=== PATIENT | male | born 2000 | race Two or more races ===

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

== ENCOUNTER 2019-11-29 03:51 | Emergency (ER) | payer SELFPAY ==
[~2019-11-29] VITALS: Ht 162.6 cm; Wt 93.0 kg
[~2019-11-29 03:51] MED LIST changes: +AZIT250T6 PO; +BECL10.62 IH; +CETI10TA74 PO; +PRED20TA PO; +VENTOLIN HFA18 GM INH
--- NOTE | 2019-11-29 04:01 | PHYS DOC ---
Past Medical History Past Medical History: Asthma Past Surgical History: No Surgical History Smoking Status: Never Smoker Alcohol Use: None Drug Use: None General Adult EDM: Chief Complaint: ASTHMA HPI: HPI: Patient is a 18 year old male with history of asthma present to ER with trouble breathing and wheezing since last night. Patient had few inhaler but did not help. Patient denies any cough, no fever. Patient denies any chest pain, no abdominal pain, no nausea vomiting. Patient denies been exposed to anybody who tested positive COVID-19. Review of Systems: Review of Systems: Constitutional: Denies fever or chills. [] Eyes: Denies change in visual acuity. [] HENT: Denies nasal congestion or sore throat. [] Respiratory: Denies cough, positive trouble breathing, wheezing. Cardiovascular: Denies chest pain or edema. [] GI: Denies abdominal pain, nausea, vomiting, bloody stools or diarrhea. [] : Denies dysuria. [] Musculoskeletal: Denies back pain or joint pain. [] Integument: Denies rash. [] Neurologic: Denies headache, focal weakness or sensory changes. [] Endocrine: Denies polyuria or polydipsia. [] Lymphatic: Denies swollen glands. [] Psychiatric: Denies depression or anxiety. [] Heart Score: Risk Factors: Risk Factors: DM, Current or recent (<one month) smoker, HTN, HLP, family history of CAD, obesity. Risk Scores: Score 0 - 3: 2.5% MACE over next 6 weeks - Discharge Home Score 4 - 6: 20.3% MACE over next 6 weeks - Admit for Clinical Observation Score 7 - 10: 72.7% MACE over next 6 weeks - Early Invasive Strategies Current Medications: Current Medications Medications (Trade) Dose Ordered Sig/Tereza Start Time Stop Time Status Last Admin Dose Admin Albuterol/ Ipratropium (Duoneb) 3 ml 1X ONCE 11/29/19 04:30 11/29/19 04:31 Allergies: Allergies: Allergies Coded Allergies Type Severity Reaction Last Updated Verified No Known Drug Allergies 04/13/16 No Physical Exam: PE: Constitutional: Well developed, well nourished, no acute distress, non-toxic appearance. [] HENT: Normocephalic, atraumatic, bilateral external ears normal, oropharynx moist, no oral exudates, nose normal. [] Eyes: PERRLA, EOMI, conjunctiva normal, no discharge. [] Neck: Normal range of motion, no tenderness, supple, no stridor. [] Cardiovascular:Heart rate regular rhythm, no murmur [] Lungs & Thorax: Bilateral breath sounds with expiratory and inspiratory wheezing. No respiratory distress. Abdomen: Bowel sounds normal, soft, no tenderness, no masses, no pulsatile masses. [] Skin: Warm, dry, no erythema, no rash. [] Back: No tenderness, no CVA tenderness. [] Extremities: No tenderness, no cyanosis, no clubbing, ROM intact, no edema. [] Neurologic: Alert and oriented X 3, normal motor function, normal sensory function, no focal deficits noted. [] Psychologic: Affect normal, judgement normal, mood normal. [] EKG: EKG: [] Radiology/Procedures: Radiology/Procedures: [][facility] [address] [place], [place] [id number] IMAGING REPORT Signed PATIENT: DARWIN STEWARTACCOUNT: [id number] : 2000 LOCATION: ER AGE: 18 SEX: M EXAM STATUS: REG ER ORD. PHYSICIAN: AMAYA RASHID DO REASON: SOA PROCEDURE: CHEST AP ONLY EXAM: CHEST AP ONLY 11/29/2019 4:02 AM CLINICAL INDICATION: Shortness of breath COMPARISON: Chest radiograph 11/26/2017 TECHNIQUE: AP upright view of the chest FINDINGS: The heart and mediastinum are normal. Lungs are well-expanded and clear. No consolidation, pleural effusion, or pneumothorax. Pulmonary vascularity is normal. The thoracic skeleton is intact. IMPRESSION: Normal chest radiograph. Electronically signed by: Samira Emery MD (11/29/2019 4:37 AM) [id number] DICTATED and SIGNED BY: SAMIRA EMERY MD DATE: 11/29/19 0437 Course & Med Decision Making: Course & Med Decision Making Pertinent Labs and Imaging studies reviewed. (See chart for details) Patient is a 18-year-old man who presented with asthmatic attack. Patient was given medication in the ER, he feels much better now. Patient will be discharged home. Patient has an inhaler at home. Dragon Disclaimer: DragEasyLink Disclaimer: This electronic medical record was generated, in whole or in part, using a voice recognition dictation system. Departure Departure Impression: Primary Impression: Asthma with acute exacerbation Disposition: 01 DC HOME SELF CARE/HOMELESS Condition: IMPROVED Referrals: NO PCP (PCP) please follow up with your doctor this week Patient Instructions: Asthma Attacks, Prevention, Asthma, Adult Additional Instructions: Thank you for visiting our Emergency Department. We appreciate you trusting us with your care. If any additional problems come up don't hesitate to return to visit us. Please follow up with your primary care provider so they can plan additional care if needed and know about the problem that you had. If symptoms worsen come back to the Emergency Department. Any concerning symptoms that start such as chest pain, shortness of air, weakness or numbness on one side of the body, running high fevers or any other concerning symptoms return to the ER. Scripts Prednisone (PREDNISONE) 20 Mg Tablet 2 TAB PO DAILY for 7 Days, #14 TAB Prov: AMAYA RASHID DO 11/29/19 AMAYA RASHID DO Nov 29, 2019 04:01
[2019-11-29] MEDS ORDERED: IPRATRPIUM/ALBUTEROL 0.5/2.5MG 3 ML NEBU. NEB ONE (04:30)
[2019-11-29] MEDS ORDERED: predniSONE 20 MG TABLET PO ONE (04:30)
[2019-11-29] MEDS ORDERED: EPINEPHrine 1 MG/ML VIAL IM ONE (04:30)
--- NOTE | 2019-11-29 04:40 | RAD ---
EXAM: CHEST AP ONLY 11/29/2019 4:02 AM CLINICAL INDICATION: Shortness of breath COMPARISON: Chest radiograph 11/26/2017 TECHNIQUE: AP upright view of the chest FINDINGS: The heart and mediastinum are normal. Lungs are well-expanded and clear. No consolidation, pleural effusion, or pneumothorax. Pulmonary vascularity is normal. The thoracic skeleton is intact. IMPRESSION: Normal chest radiograph. Electronically signed by: Samira Emery MD (11/29/2019 4:37 AM) [id number]
[2019-11-29 05:00] VITALS: BP 133/74
[2019-11-29] MEDS ORDERED: PRED20TA PO (05:25)
== END 2019-11-29 05:35 | disposition home or self-care (01) ==
LOC: ER 03:51
DX: J45.901 Unspecified asthma with (acute) exacerbation (principal)
CPT/HCPCS: 71045; 94640; 96372; 99283; J0171; J7512

== ENCOUNTER 2020-09-01 09:29 | Emergency (ER) | payer SELFPAY ==
[~2020-09-01] VITALS: Ht 167.6 cm; Wt 95.4 kg
[2020-09-01] MEDS ORDERED: IPRATRPIUM/ALBUTEROL 0.5/2.5MG 3 ML NEBU. NEB ONE (09:45)
[2020-09-01] MEDS ORDERED: DEXAMETHASONE 4 MG TABLET PO ONE (09:45)
--- NOTE | 2020-09-01 10:05 | PHYS DOC ---
Past Medical History Past Medical History: Asthma Past Surgical History: No Surgical History Smoking Status: Never Smoker Alcohol Use: None Drug Use: None General Adult EDM: Chief Complaint: ASTHMA HPI: HPI: Patient is a 19 year old male with a history of asthma who presents with SOB. The patient ran out of his albuterol inhaler two days ago and has been experiencing SOB since. The patient reports previous asthma exacerbations when he stops using his inhaler. He states that he becomes SOB if he does not use his inhaler daily. The patient denies chest pain, diaphoresis, or abdominal pain at this time. The patient denies any recent illness or recent sick contacts. The patient denies nausea, vomiting, or diarrhea. Denies known sick contacts. Denies known exposure to COVID-19. Review of Systems: Review of Systems: Constitutional: Denies fever or chills Eyes: Denies redness or eye pain HENT: Denies nasal congestion or sore throat Respiratory: Reports SOB and wheezing; Denies cough Cardiovascular: Denies chest pain or palpitations GI: Denies abdominal pain, nausea, or vomiting : Denies dysuria or hematuria Musculoskeletal: Denies back pain or joint pain Integument: Denies rash or skin lesions Neurologic: Denies headache, focal weakness or sensory changes Complete systems were reviewed and found to be within normal limits, except as documented in this note. Heart Score: C/O Chest Pain: N/A Current Medications: Current Medications Medications (Trade) Dose Ordered Sig/Tereza Start Time Stop Time Status Last Admin Dose Admin Albuterol/ Ipratropium (Duoneb) 3 ml 1X ONCE 09/01/20 09:45 09/01/20 09:51 DC Dexamethasone (Decadron) 10 mg 1X ONCE 09/01/20 09:45 09/01/20 09:51 DC Allergies: Allergies: Allergies Coded Allergies Type Severity Reaction Last Updated Verified No Known Drug Allergies 02/11/20 No Physical Exam: PE: Constitutional: Well developed, obese, in mild distress, non-toxic appearance HENT: Normocephalic, atraumatic Eyes: Conjunctiva normal, no discharge Neck: Normal range of motion, no tenderness, supple Lungs & Thorax: Mild respiratory distress, wheezes heard bilaterally, normal chest rise and fall Abdomen: Soft, no tenderness Skin: Warm, dry, no erythema, no rash Extremities: No tenderness, ROM intact, no edema Neurologic: Alert and oriented X 3, no focal deficits noted Psychologic: Affect normal, judgment normal EKG: EKG: [] Radiology/Procedures: Radiology/Procedures: PROCEDURE: CHEST AP ONLY XR CHEST 1V History: Short of air, history of asthma Comparison: 02/11/2020, 11/29/2019 Technique: AP radiograph of the chest. Findings: The lungs are adequately and symmetrically inflated. No airspace consolidation, pleural effusion or pneumothorax. The cardiomediastinal silhouette and pulmonary vasculature are within normal limits. No acute osseous abnormality. Soft tissues are unremarkable. Impression: 1. No acute cardiopulmonary process. Electronically signed by: Pb Ellis MD (09/01/2020 10:36 AM) [facility] Course & Med Decision Making: Course & Med Decision Making Pertinent Imaging studies reviewed. (See chart for details) Patient is a 19 year old male who presented with shortness of breath after running out of his inhaler two days ago. The patient has a history of asthma. Breathing treatment was administered and the patient's SOB improved significantly. CXR was obtained and showed no acute findings. Dexamethasone was also given. Patient stable for discharge with outpatient follow-up with PCP. Discussed findings and plan with patient and family, who acknowledge understanding and agreement. Mona Disclaimer: Mona Disclaimer: This electronic medical record was generated, in whole or in part, using a voice recognition dictation system. Departure Departure Impression: Primary Impression: Asthma with acute exacerbation Qualified Codes: J45.21 - Mild intermittent asthma with (acute) exacerbation Disposition: 01 HOME / SELF CARE / HOMELESS Condition: STABLE Referrals: NO PCP (PCP) Patient Instructions: Asthma, Adult, [id number] Scripts Albuterol Sulfate (PROAIR HFA INHALER) 8.5 Gm Hfa.aer.ad 2 PUFF IH PRN Q4-6HRS PRN for wheezing, #1 INHALER 0 Refills Prov: ALLEN EMMANUEL DO 09/01/20 Prednisone (PREDNISONE) 20 Mg Tablet 2 TAB PO DAILY for 4 Days, #8 TAB Start this prescription tomorrow, Thursday09/02/20 Prov: ALLEN EMMANUEL DO 09/01/20 ALLEN EMMANUEL DO Sep 01, 2020 10:05
--- NOTE | 2020-09-01 10:38 | RAD ---
XR CHEST 1V History: Short of air, history of asthma Comparison: 02/11/2020, 11/29/2019 Technique: AP radiograph of the chest. Findings: The lungs are adequately and symmetrically inflated. No airspace consolidation, pleural effusion or p neumothorax. The cardiomediastinal silhouette and pulmonary vasculature are within normal limits. No acute osseous abnormality. Soft tissues are unremarkable. Impression: 1. No acute cardiopulmonary process. Electronically signed by: Pb Ellis MD (09/01/2020 10:36 AM) [facility]
[2020-09-01] MEDS ORDERED: ALBU2.5V8 IH (10:56)
[2020-09-01] MEDS ORDERED: PRED20TA PO (10:56)
[2020-09-01 11:02] VITALS: BP 145/80
== END 2020-09-01 11:05 | disposition home or self-care (01) ==
LOC: ER 09:29
DX: J45.21 Mild intermittent asthma with (acute) exacerbation (principal)
CPT/HCPCS: 71045; 94640; 99283

== ENCOUNTER 2020-12-20 04:09 | Emergency (ER) | payer SELFPAY ==
[~2020-12-20] VITALS: Ht 165.1 cm; Wt 100.0 kg
[~2020-12-20 04:09] MED LIST changes: +ALBU2.5V8 IH
[2020-12-20] MEDS ORDERED: IPRATRPIUM/ALBUTEROL 0.5/2.5MG 3 ML NEBU. ONE (04:21)
--- NOTE | 2020-12-20 04:22 | PHYS DOC ---
Past Medical History Past Medical History: Asthma Past Surgical History: Other Additional Past Surgical Histo: LT FOOT Smoking Status: Never Smoker Alcohol Use: None Drug Use: None General Adult EDM: Chief Complaint: ASTHMA HPI: HPI: 20-year-old male past medical history of asthma, presents the ED with complaints of shortness of breath that started yesterday, reports he ran out of his albuterol inhaler and this feels like his asthma. Has not been able to sleep due to difficulty breathing. Last asthma exacerbation was approximately 1 year ago which required hospitalization. No prior history of intubations. Has not been vaccinated for Covid due to being scared of the vaccine. Is not a tobacco smoker. Review of Systems: Review of Systems: Constitutional: Denies fever or chills. [] Eyes: Denies change in visual acuity. [] HENT: Denies nasal congestion or sore throat. [] Respiratory: Denies cough or shortness of breath. [] Cardiovascular: Denies chest pain or edema. [] GI: Denies abdominal pain, nausea, vomiting, bloody stools or diarrhea. [] : Denies dysuria. [] Musculoskeletal: Denies back pain or joint pain. [] Integument: Denies rash. [] Neurologic: Denies headache, focal weakness or sensory changes. [] Endocrine: Denies polyuria or polydipsia. [] Lymphatic: Denies swollen glands. [] Psychiatric: Denies depression or anxiety. [] Heart Score: C/O Chest Pain: No Risk Factors: Risk Factors: DM, Current or recent (<one month) smoker, HTN, HLP, family history of CAD, obesity. Risk Scores: Score 0 - 3: 2.5% MACE over next 6 weeks - Discharge Home Score 4 - 6: 20.3% MACE over next 6 weeks - Admit for Clinical Observation Score 7 - 10: 72.7% MACE over next 6 weeks - Early Invasive Strategies Current Medications: Current Medications Medications (Trade) Dose Ordered Sig/Tereza Start Time Stop Time Status Last Admin Dose Admin Albuterol/ Ipratropium (Duoneb) 9 ml 1X ONCE 12/20/20 04:15 12/20/20 04:16 UNV Dexamethasone (Decadron) 10 mg 1X ONCE 12/20/20 04:30 12/20/20 04:31 Allergies: Allergies: Allergies Coded Allergies Type Severity Reaction Last Updated Verified No Known Drug Allergies 02/11/20 No Physical Exam: PE: Constitutional: increased work of breathing, non-toxic appearance. HENT: Normocephalic, atraumatic, Eyes: EOMI, conjunctiva normal, no discharge. Neck: Normal range of motion, supple, Cardiovascular: S1/2 present, regular rhythm Lungs & Thorax: Speaking in full sentences, tachypneic with subcostal retractions and audible wheezing, Abdomen: soft, no tenderness, obese Skin: Warm, diaphoretic Extremities: No tenderness, no cyanosis, no lower extremity edema Neurologic: Alert and oriented X 3, normal motor function, normal sensory function, no focal deficits noted. [] Psychologic: Affect normal, judgement normal, mood normal. [] EKG: EKG: sinus rhythm 95 bpm, LAD, normal intervals, no ST elevations or depressions, Radiology/Procedures: Radiology/Procedures: IMAGING REPORT Signed PATIENT: DARWIN STEWARTACCOUNT: [id number] : 2000 LOCATION: ER AGE: 20 SEX: M EXAM STATUS: PRE ER ORD. PHYSICIAN: JAYLA SR DO REASON: soa PROCEDURE: CHEST AP ONLY XR CHEST 1V 12/20/2020 4:23 AM INDICATION: Shortness of air COMPARISON: 09/01/2020 TECHNIQUE: Portable frontal view of the chest is provided. FINDINGS: The cardiomediastinal silhouette is within normal limits. Lungs are clear. There are no significant pleural effusions. There is no pulmonary vascular congestion. No pneumothorax. No suspicious osseous abnormality. IMPRESSION: There is no acute cardiopulmonary process. Electronically signed by: Saranya Barrera MD (12/20/2020 4:41 AM) [facility] DICTATED and SIGNED BY: SARANYA BARRERA MD DATE: 12/20/20 [id number] 0 Course & Med Decision Making: Course & Med Decision Making Pertinent Labs and Imaging studies reviewed. (See chart for details) On reevaluation, pt calm, tachypnea resolved. Pt with bilateral breath sounds, mild wheezing. Patient speaking in full sentences and not requiring any supplemental oxygen. Tachycardia resolved-patient hemodynamically stable. Patient states significant relief of symptoms and feels well to return home. Will prescribe steroids, Flovent, and albuterol inhaler. Rapid Covid and flu negative. Will discharge home with strict ED return precautions were given for difficulties breathing, fever or chest pain. Encouraged urgent outpatient follow-up with PMD and pulmonology as needed for definitive management of asthma. Life-threatening processes were considered but are low suspicion at this time, given history, physical exam and ED workup. Pt was educated on all prescription medications and adverse effects. All patient's questions were answered and pt was stable at time of discharge. Life/limb-threatening differential includes but is not limited to, ACS, dysrhythmia, pneumothorax or hemothorax, pulmonary embolus, pneumonia, bronchoconstriction, pulmonary edema, angioedema, epiglottitis, tracheitis, Lawrence's angina, RPA/CONSULTING PSYCHOLOGIST, anaphylaxis, angioedema, cardiac tamponade or murmurs, pericarditis, myocarditis, poisoning or toxicity, sepsis or autoimmune/neurologic disease. I have spoken with the patient and/or caregivers. I explained the patient's condition, diagnoses and treatment plan based on the information available to me at this time. I have answered the patient and/or caregiver's questions and addressed any concerns. The patient and/or caregivers have a good understanding of patient's diagnosis, condition and treatment plan as can be expected at this point. Vital signs have been stable. Patient's condition is stable and appropriate for discharge from the emergency department. Patient will pursue further outpatient evaluation with primary care physician or other designated or consulting physician as outlined in the discharge instructions. The patient and/or caregivers are agreeable to this plan of care and follow-up instructions have been explained in detail. The patient and/or caregivers have received these instructions in written form and have expressed an understanding of the discharge instructions. The patient and/or caregivers are aware that any significant change of condition or worsening of symptoms should prompt immediate return to this or the closest emergency department or call to 911. Mona Disclaimer: Mona Disclaimer: This electronic medical record was generated, in whole or in part, using a voice recognition dictation system. Departure Departure Impression: Primary Impression: Asthma with acute exacerbation Additional Impression: Person under investigation for COVID-19 Disposition: HOME / SELF CARE / HOMELESS Condition: STABLE Referrals: NO PCP (PCP) Follow-up with your primary care physician in 24 to 48 hours OR FOLLOW UP WITH FAMILY MEDICINE: [address], [address] [place] [address] Patient Instructions: Asthma Prevention-Brief, Asthma, Adult Additional Instructions: FOLLOW UP WITH PULMONOLOGY: FOR DEFINITIVE MANAGEMENT of asthma [facility] [address] [place] [address] Return to ED immediately if your oxygen level drops below 90% (purchase a pulse oximetry at a medical supply store), difficulties breathing including rapid breathing or increased work of breathing (skin sucking under ribs), chest pain or stroke-like symptoms (facial droop, speech changes, arm/leg weakness). You have been tested for or diagnosed with COVID-19. It is an infection caused by a new type of coronavirus. COVID-19 will cause cold-like or mild flu symptoms in most. It can cause more severe symptoms like problems breathing in some. There is no treatment for COVID-19. The body will clear the infection over time. Self-care will help to ease discomfort. Steps to Take: Self-Care Rest as needed. Healthy habits may help you feel better. Steps include: Choose healthy foods including fruits and vegetables. Drink water throughout the day. Get plenty of sleep each night. If you smoke, try to quit. It may ease breathing. Avoid alcohol. Keep Others Healthy The virus can spread to others. Droplets are released every time you sneeze or cough. The droplets can get into the mouth, nose, or eyes of people near you and lead to infection. To lower the chances of spreading COVID-19 to others: Stay at home until your doctor has said it is safe to leave. If you tested positive this will mean staying isolated until both of the following are true: At least 7 days have passed since the start of illness. You are free of fever for at least 72 hours without the use of medicine. During this time: - Avoid public areas, events, or transportation. Do not return to work or school until your doctor has said it is safe to do so. - Call ahead if you need to go to a medical center. Let them know you may have COVID-19. It will help them guide you where to go. They may also ask you to wear a facemask when you come to the office. - If you call for emergency medical services, let them know you may have COVID- 19. While at home: - Try to avoid close contact with others. Stay about 6 feet away. - If possible, spend most of your time in a separate room from others. - Use a face mask if you will be in close contact with others such as sharing a room or vehicle. - Have someone wipe down common surfaces in the home. Use household sterilization tech every day on areas like doorknobs, counters, or sinks. - Cough or sneeze into a tissue. Throw the tissue away right after use. If a tissue is not available, cough or sneeze into your elbow. - Wash your hands often. Wash them after sneezing or coughing. Use soap and water and wash for at least 20 seconds. Alcohol based hand floor cleaner can be used if soap and water is not available. - Do not prepare food for others. Avoid sharing personal items like forks, spoons, or toothbrushes. - Avoid close contact with pets while you are sick. There is no evidence of the virus passing to pets. This is a safety step until more is known about this virus. Isolation can be frustrating. Social interaction can help. Keep in touch with friends and family through phone and tech options. You can still interact with others in your home, just keep a safe distance of about 6 feet. Follow-up: Your doctors office will check in with you to see if there are any changes in your health. You may be asked to keep track of symptoms to share with them. They will also let you know when you are clear to be in public again. Problems to Look Out For: Contact your doctor if your recovery is not going as you expect. Get emergency care if you have problems such as: - Trouble breathing - Nonstop chest pain or pressure - Changes in awareness, confusion, or problems waking - Lips or face have bluish color - Worsening of symptoms If you think you have an emergency, call for emergency medical services right away. As taken from [email or web address] Fluticasone Propionate (FLOVENT 44MCG HFA) 10.6 Gm Aer.w.adap 2 PUFF IH BID, #1 INHALER 0 Refills Prov: JAYLA SR DO 12/20/20 Albuterol Sulfate (VENTOLIN HFA INHALER) 18 Gm Hfa.aer.ad 2 PUFF INH QID for FOR ASTHMA, #1 INHALER 0 Refills Prov: JYALA SR DO 12/20/20 Prednisone (PREDNISONE) 20 Mg Tablet 2 TAB PO DAILY for 4 Days, #8 TAB Prov: JAYLA SR DO 12/20/20 JAYLA SR DO Dec 20, 2020 04:22
[2020-12-20] MEDS ORDERED: DEXAMETHASONE 4 MG TABLET PO ONE (04:30)
[2020-12-20] MEDS ORDERED: IPRATRPIUM/ALBUTEROL 0.5/2.5MG 3 ML NEBU. NEB ONE (04:30)
[2020-12-20 04:42] LABS: BASO % 0 % (0-3); EOS # 1.3 x10^3/uL (0.0-0.7); EOS % 9 % (0-3); HEMATOCRIT 52.3 % (39.0-53.0); HEMOGLOBIN 17.8 g/dL (13.0-17.5); LYMPH # 3.4 x10^3/uL (1.0-4.8); LYMPH % 24 % (24-48); MEAN CORPUSCULAR HEMOGLOBIN 30 pg (25-35); MEAN CORPUSCULAR HGB CONC 34 g/dL (31-37); MEAN CORPUSCULAR VOLUME 87 fL (79-100); MONO # 1.1 x10^3/uL (0.0-1.1); MONO % 8 % (0-9); NEUT # 8.4 x10^3/uL (1.8-7.7); NEUT % 59 % (31-73); PLATELET COUNT 225 x10^3/uL (140-400); RED CELL DISTRIBUTION WIDTH 13.3 % (11.5-14.5); WHITE BLOOD COUNT 14.1 x10^3/uL (4.0-11.0)
--- NOTE | 2020-12-20 04:44 | RAD ---
XR CHEST 1V 12/20/2020 4:23 AM INDICATION: Shortness of air COMPARISON: 09/01/2020 TECHNIQUE: Portable frontal view of the chest is provided. FINDINGS: The cardiomediastinal silhouette is within normal limits. Lungs are clear. There are no significant pleural effusions. There is no pulmonary vascular congestion. No pneumothora x. No suspicious osseous abnormality. IMPRESSION: There is no acute cardiopulmonary process. Electronically signed by: Sarahi Barrera MD (12/20/2020 4:41 AM) [facility]
--- NOTE | 2020-12-20 04:47 | EKG ---
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
[2020-12-20 04:57] LABS: CALCIUM 9.3 mg/dL (8.5-10.1); CREATININE 1.1 mg/dL (0.7-1.3); GFR 84.5; POTASSIUM 3.6 mmol/L (3.5-5.1)
[2020-12-20] MEDS ORDERED: IV NORMAL SALINE 1000ML BAG 1,000 ML IV ONE (05:00)
[2020-12-20] MEDS ORDERED: MAGNESIUM SULFATE 2GM 50 ML IV ONE (05:00)
[2020-12-20 05:02] LABS: INFLUENZA A PATIENT NEGATIVE (NEGATIVE); INFLUENZA B PATIENT NEGATIVE (NEGATIVE)
[2020-12-20 05:05] LABS: ALBUMIN 4.5 g/dL (3.4-5.0); ALBUMIN/GLOBULIN RATIO 1.2 (1.0-1.7); MAGNESIUM 1.9 mg/dL (1.8-2.4); TOTAL BILIRUBIN 1.5 mg/dL (0.2-1.0); TOTAL PROTEIN 8.4 g/dL (6.4-8.2)
[2020-12-20 05:13] VITALS: BP 125/57
[2020-12-20 05:21] LABS: % EOS 8 % (0-5); % LYMPHS 20 % (24-48); % MONOS 8 % (0-10); % SEGS 64 % (35-66); PLT ESTIMATE ADEQUATE (ADEQUATE)
[2020-12-20] MEDS ORDERED: VENTOLIN HFA18 GM INH (05:47)
[2020-12-20] MEDS ORDERED: PRED20TA PO (05:47)
[2020-12-20] MEDS ORDERED: FLUT10.6 IH (05:47)
--- NOTE | 2020-12-20 17:10 | NUR ---
IP: Attempted to contact pt concerning covid results. No answer, left a voicemail to return the call.
== END 2020-12-20 06:02 | disposition home or self-care (01) ==
LOC: ER 04:09
DX: J45.901 Unspecified asthma with (acute) exacerbation (principal); Z20.822 Contact with and (suspected) exposure to COVID-19
CPT/HCPCS: 36415; 71045; 80053; 83735; 84484; 85007; 85025; 87426; 87804; 93005; 94640; 96365; 99285; J3475; J7030; U0003; U0005

== ENCOUNTER 2021-01-27 13:44 | Emergency (ER) | payer SELFPAY ==
[~2021-01-27] VITALS: Ht 167.6 cm; Wt 93.0 kg
[~2021-01-27 13:44] MED LIST changes: +FLUT10.6 IH
[2021-01-27] MEDS ORDERED: ALBUTEROL SULFATE 2.5 MG/3 ML NEBU. NEB ONE ×2 (14:15→15:00)
[2021-01-27] MEDS ORDERED: predniSONE 20 MG TABLET PO ONE (14:15)
--- NOTE | 2021-01-27 15:15 | PHYS DOC ---
Past Medical History Past Medical History: Asthma Past Surgical History: Other Additional Past Surgical Histo: LT FOOT Smoking Status: Never Smoker Alcohol Use: None Drug Use: None General Adult EDM: Chief Complaint: ASTHMA HPI: HPI: Patient is a 20-year-old male presents emergency department complaining of asthma attack started yesterday. Patient reports he is out of his albuterol inhaler. Reports this is a normal presentation for his asthma attacks, he would otherwise have used his rescue inhaler and been fine but was unable to because he does not have the medication currently to use. Patient reports he has not been hospitalized in the past for his asthma. Does not see primary care for asthma currently. Denies allergies to medications, reports when he presents like this he usually receives 1-3 nebulized breathing treatments, started on oral prednisone and is prescribed oral prednisone for treatment at home. Patient denies recent fever or chills, denies chest pains, chest congestion or nasal congestion. Patient denies other physical complaints or physical concerns. Review of Systems: Review of Systems: 14 body systems of review of systems have been reviewed. See HPI for pertinent positives and negative responses, otherwise all other systems are negative, nonpertinent or noncontributory. Constitutional: Negative except as outlined in HPI above. Skin: Negative except as outlined in HPI above. Eyes: Negative except as outlined in HPI above. HENT: Negative except as outlined in HPI above. Respiratory: Negative except as outlined in HPI above. Cardiovascular: Negative except as outlined in HPI above. GI: Negative except as outlined in HPI above. : Negative except as outlined in HPI above. Musculoskeletal: Negative except as outlined in HPI above. Integument: Negative except as outlined in HPI above. Neurologic: Negative except as outlined in HPI above. Endocrine: Negative except as outlined in HPI above. Lymphatic: Negative except as outlined in HPI above. Psychiatric: Negative except as outlined in HPI above. Heart Score: C/O Chest Pain: No Risk Factors: Risk Factors: DM, Current or recent (<one month) smoker, HTN, HLP, family history of CAD, obesity. Risk Scores: Score 0 - 3: 2.5% MACE over next 6 weeks - Discharge Home Score 4 - 6: 20.3% MACE over next 6 weeks - Admit for Clinical Observation Score 7 - 10: 72.7% MACE over next 6 weeks - Early Invasive Strategies Current Medications: Current Medications Medications (Trade) Dose Ordered Sig/Tereza Start Time Stop Time Status Last Admin Dose Admin Albuterol Sulfate (Ventolin Neb Soln) 2.5 mg 1X ONCE 01/27/21 15:00 01/27/21 15:01 Prednisone (Prednisone) 60 mg 1X ONCE 01/27/21 14:15 01/27/21 14:16 DC 01/27/21 14:32 60 MG Allergies: Allergies: Allergies Coded Allergies Type Severity Reaction Last Updated Verified No Known Drug Allergies 02/11/20 No Physical Exam: PE: Constitutional: Well developed, well nourished, no acute distress, non-toxic appearance. 20-year-old male in mild respiratory distress, audible I/E wheezing upon presentation. HENT: Normocephalic, atraumatic. Oropharynx moist, pink, no deep tissue infectious process appreciated, no lymphadenopathy of the head or neck appreciated, bilateral TMs within normal limits. Eyes: Conjunctiva normal, no discharge. Neck: Normal range of motion, no stridor. Cardiovascular: No cyanosis appreciated, distal cap refill less than 2 seconds. Regular rate and rhythm. Lungs & Thorax: Audible I/E wheezing during physical exam, I/E wheezing throughout all lung galindo per auscultation, no other adventitious lung sounds appreciated. No tripoding or respiratory accessory muscle use appreciated Abdomen: Nontender, no abnormalities noted. Skin: Warm, dry, no erythema, no rash. Back: No tenderness, no deformities. Extremities: No tenderness, no cyanosis, no clubbing, ROM intact, no edema. Neurologic: Alert and oriented X 3, normal motor function, normal sensory function, no focal deficits noted. Psychologic: Affect normal, judgement normal, mood normal. Current Patient Data: Vital Signs: Vital Signs Date Time Temp Pulse Resp B/P (MAP) Pulse Ox O2 Delivery O2 Flow Rate FiO2 01/27/21 14:16 92 Room Air 01/27/21 14:06 98.2 115 32 161/85 (110) 98.2 EKG: EKG: [] Radiology/Procedures: Radiology/Procedures: [] Course & Med Decision Making: Course & Med Decision Making Pertinent Labs and Imaging studies reviewed. (See chart for details) 20-year-old male, vital signs reviewed, presents to the emergency department concerning acute asthma attack that started yesterday. Physical examination is consistent with acute asthma exacerbation. The patient is not febrile, he is not hypoxic, will order oral prednisone, albuterol neb treatment, will reevaluate after period of time. After period of time, reevaluation of the patient, improvement noted as the patient is no longer in any apparent respiratory distress, no audible I/E wheezing appreciated, light expiratory wheezes present and right/left upper lobes. Well order additional nebulizer albuterol treatment and reevaluate. After period of time, reevaluation of patient found the patient in no respiratory distress, is not hypoxic, not tachypneic, normal work of breathing, lung sounds clear to auscultate all lung galindo, discussed with patient will prescribe albuterol MDI, prednisone medication regimen and sent to pharmacy of choice, strict follow-up with primary care, will provide information for [facility] primary care clinics and physicians to follow-up with. Return to ER precautions and concerns, patient gave verbal understanding of and is amenable to ED discharge planning. Discussed with the patient all findings and diagnostic testing as well as the need to follow-up with their primary care provider for further evaluation and treatment or return to the ED if any new or worsening symptoms. Strict return precautions were also discussed at length, the patient voiced understanding and agreement with the discharge planning. The patient was nontoxic in appearance, in no apparent distress, and hemodynamically stable at the time of disposition. Mona Disclaimer: Mona Disclaimer: This electronic medical record was generated, in whole or in part, using a voice recognition dictation system. Departure Departure Impression: Primary Impression: Asthma with acute exacerbation Qualified Codes: J45.21 - Mild intermittent asthma with (acute) exacerbation Disposition: 01 HOME / SELF CARE / HOMELESS Condition: GOOD Referrals: NO PCP (PCP) Patient Instructions: Asthma, Adult Additional Instructions: You were seen today in the emergency department for asthma exacerbation. You were given 2 albuterol nebulizer treatments and an oral prednisone dose in the emergency department. Your symptoms have resolved and you are no longer wheezing or having an asthma attack. As we discussed, I am prescribing you a prescription for your albuterol MDI, and prednisone dosing regimen to the pharmacy of your choice. It is very important that you establish primary care and follow-up with your primary care provider for ongoing evaluation of your asthma. Please do this soon, I have provided a list of [facility] clinics and physicians that you may choose to follow-up with. Return to the emergency department for worsening symptoms or other concerns. Thank you for visiting our Emergency Department. It was a pleasure taking care of you today in the emergency department and we appreciate you trusting us with your care. If any additional problems come up don't hesitate to return to visit us. Please follow up with your primary care provider so they can plan additional care if needed and know about the problem that you had. If symptoms worsen come back to the Emergency Department. Any concerning symptoms that start such as chest pain, shortness of air, weakness or numbness on one side of the body, running high fevers or any other concerning symptoms return to the ER. Scripts Albuterol Sulfate (PROAIR HFA INHALER) 8.5 Gm Hfa.aer.ad 2 PUFF IH PRN Q4-6HRS PRN for wheezing for 21 Days, #1 INHALER 0 Refills Prov: ALLEN NGUYEN APRN 01/27/21 Prednisone (PREDNISONE) 50 Mg Tablet 1 TAB PO DAILY for asthma, #5 TAB 0 Refills Prov: ALLEN NGUYEN APRN 01/27/21 ALLEN NGUYEN APRN Jan 27, 2021 15:15
[2021-01-27 15:39] VITALS: BP 140/62
[2021-01-27] MEDS ORDERED: PRED50TA PO (16:09)
[2021-01-27] MEDS ORDERED: ALBU2.5V8 IH (16:09)
== END 2021-01-27 16:31 | disposition home or self-care (01) ==
LOC: ER 13:44
DX: J45.21 Mild intermittent asthma with (acute) exacerbation (principal)
CPT/HCPCS: 94640; 99285; J7512; J7613